=== PATIENT | male | born 1950 | race Caucasian/White ===

== ENCOUNTER 2022-12-28 02:09 | Inpatient (IN) | payer MEDICARE ==
[~2022-12-28] VITALS: Ht 180.3 cm; Wt 82.1 kg
[2022-12-28] MEDS ORDERED: MAGNESIUM HYDROXIDE 30 ML LIQUID UDC PO PRN (02:45)
[2022-12-28] MEDS ORDERED: MAG HYDROX/AL HYDROX/SIMETH 30 ML LIQUID UDC PO PRN (02:45)
[2022-12-28] MEDS: LORAZEPAM 1 MG TABLET PO PRN ×3 (02:54→20:59)
--- NOTE | 2022-12-28 03:34 | NUR ---
GPS ADMISSION NOTE : Received patient as a direct admit from [facility] on a 5150 for DTS and GD. Per hold, the patient mentioned to a friend ,that he wants "To end it all by walking into the ocean". There has been an increase in confusion over the last month and the patient is out of touch with reality and is unable to care for himself. This patient is reported to be living in his car. Upon face to face evaluation, the patient is confused and is unable to engage in any meaningful conversation with this senior writer. He does however ,deny active SI and does not remember making those statements that are on the hold. The patient is hearing voices and his speech is word salad and is nonsensical. He is unable to answer questions about his medical history and has no record of taking medications from home. VS are stable, the patient is ambulatory and continent. A Patients rights hand book and Patient Advisement were provided and discussed. Orientation to the environment given but reinforcement needed. Safety Stratiges are in place . Continuing to monitor for combativeness, paranoia, AMS and to redirect and reorientate the patient as needed.
[2022-12-28 04:29] VITALS: BP 141/92
--- NOTE | 2022-12-28 07:10 | NUR ---
GPS: Patient is up walking zander the manrique, speech clear but slow, patient unaware of current situation, needs verbal orientation. Denies pain or discomforts, fall and safety precautions implement.Will continue to monitor.
[2022-12-28 07:30] VITALS: BP 93/55
[2022-12-28] MEDS: NICOTINE 14 MG/24HR PATCH TD SCH (08:31)
[2022-12-28 10:28] VITALS: BP 115/90
--- NOTE | 2022-12-28 11:10 | NUR ---
GPS: Patient is pacing around,pushing exit doors, walking in and out of his room, "I need to get out of here, I need to smoke , my shoes, this needs to happen now". Frequent verbal redirecting patient to realty ,re-orientating to unit, educating patient that this is a smoke free facility, Nicotine Patch applied this morning, Patient showered, shaved. Patient smoke with his friend Mr. Gudino ( this is the person that brought him to the Hospital) offered Po Prn for anxiety, after multiple times offering, patient took medication. Emotional support provided, Fall and safety precaution implement. Will continue to monitor.
[2022-12-28] MEDS: risperiDONE 0.25 MG TABLET PO SCH (16:02)
[2022-12-28 16:31] VITALS: BP 91/59
[2022-12-28 19:46] VITALS: BP 100/58
[2022-12-28] MEDS: MIRTAZAPINE 15 MG TABLET PO SCH (20:58)
[2022-12-28] MEDS: ZOLPIDEM 5 MG TABLET PO PRN (22:15)
--- NOTE | 2022-12-29 00:52 | NUR ---
At the start of the shift 1900, until 2300, this patient was pacing, agitated , confused, disoriented and unable to reorient or redirect. The patient was intrusive with staff and other patients. After using the bathroom in his room, he impulsively pulled the door off of the bathroom and broke the clock hanging up on the wall for no reason. Not aware of what he did , zero insight. PRN medications were given with a snack. The patient went to bed and got up a few times completely disoriented. Eventually, the patient fell asleep. Safety Stratiges are in place. This patient requires constant monitoring and could use the Aide of a sitter. Staff is as vigilant as possible with care of this patient.
[2022-12-29] MEDS ORDERED: OLANZAPINE 10 MG VIAL IM ONE (04:15)
--- NOTE | 2022-12-29 05:27 | NUR ---
The patient got up at 0345 am, and was very confused, verbally abusive and combative with all 3 of the staff members on the unit. This patient would not respond to any redirection, reorientation, or the multiple attempts at using a calm approach or distraction. Toileting and food offered but every restrictive means possible to deescalate the patient was unsuccessful. He continued to strike out violently, punching, kicking , slapping and pulling the staffs hair. After getting the patient in the chair, Dr Butler was notified and an order was received for a one time IM injection. Security was notified and the injection was given with less than a minute of hands on by the staff. The patient tolerated the medication well, but unfortunately the patients behavior has improved only minimally. VS have been stable. Fluid was offered, but the patient tried to throw it at the nurse. It is an ongoing struggle to maintain safety for everyone involved on this unit d/t the patients poor impulse control, impulsivity and the sheer strength of this man. Safety Stratiges are in place and the notion of getting a sitter to enhance safety at this time will be endorsed to the oncoming shift and the administration for consideration.
[2022-12-29 07:43] VITALS: BP 111/75
[2022-12-29] MEDS: risperiDONE 0.25 MG TABLET PO SCH ×2 (08:09→16:10)
[2022-12-29] MEDS: NICOTINE 14 MG/24HR PATCH TD SCH (08:09)
[2022-12-29] MEDS: LORAZEPAM 1 MG TABLET PO PRN ×3 (08:14→21:05)
--- NOTE | 2022-12-29 08:31 | NUR ---
Gps/Fur Dry Cleaner- During the initial rounds , pt, anixous fidgety, , confused , resistive to am care, refused to eat breakfast, offered to assist pt. Kept up on his gerii-chair for close supervision fo his safety .Fluids offered, encouraged
--- NOTE | 2022-12-29 12:27 | NUR ---
Gps/Tack Maker- Tried to feed patient, fidgety, restless, grabs staff, gets anxious, difficulty redirecting , no meaningful conversation . reaching out for something , mumbles . Call Center Nurse tried, offering liquids, grabs cups , spilling liquids , trying to bite plastic spoons
[2022-12-29] MEDS: ACETAMINOPHEN 325 MG TABLET PO PRN ×2 (12:52→21:05)
[2022-12-29 16:16] VITALS: BP 116/87
--- NOTE | 2022-12-29 17:32 | NUR ---
Gps/Structural Engineering Technician- Patient removed and threw upper denture on the floor, cleansed , rinsed , placed oin a denture cup in his locker (beloning) . Tired to feed patient,ensure offered and encouraged , patient tries to grabs, resistive, trying to hit, jerky movements. Will reoffer food when calmer .
[2022-12-29 19:47] VITALS: BP 119/83
[2022-12-29] MEDS: MIRTAZAPINE 15 MG TABLET PO SCH (21:05)
--- NOTE | 2022-12-30 05:32 | NUR ---
[facility]; responds to name. Disoriented, confused, and hard to re-direct. Pt is x2 full assist with ambulation/transfers, especially when trying to provide daily care. Unsteady gait and balance. Can become easily irritated when trying to provide care such as cleaning his perineal area and changing his diaper and clothes. Can become combative striking out with fists, elbows, legs, and feet. Pt does take his medications crushed in applesauce. Safety measures in place.
--- NOTE | 2022-12-30 07:30 | NUR ---
Pt is highly combative and it took entire staff this shift to control and provide care for this patient. Pt strikes out with all extremities. AOx1, confused and disoriented. Very hard to re-direct. Safety measures in place.
[2022-12-30] MEDS ORDERED: OLANZAPINE 10 MG VIAL IM STA (07:39)
--- NOTE | 2022-12-30 07:47 | NUR ---
GPS: Nursing Notes: Severe Agitation: Patient is awake and responding to internal stimuli by shouting, threatening staff, kicking staff, punching staff, poor anger management, throwing things to staff, overly disruptive by banging on the wall and table, restless behavior, setting limits, but unable to be redirected, Dr. Carrie leo, continue to monitor for safety, continue with treatment plan.
--- NOTE | 2022-12-30 07:53 | NUR ---
GPS: Nursing Notes: Chemical Restraint: Patient continue to be restless, unable to be redirected, punching staff, kicking staff, poor anger management, overly disruptive by shouting profanities toward staff, banging on the table, punching the wall, throwing juice cup toward staff, Dr. Butler called and ordered: Zyprexa 5mg IM STAT for severe agitated behavior, R=18, continue to monitor for safety, continue with treatment plan.
--- NOTE | 2022-12-30 08:23 | NUR ---
GPS: Nursing Notes: Reassessment of Chemical Restraint: Patient is awake and responding to his name, confused, disoriented, disorganized, impaired judgment, poor insight, IM medication was effective, patient became calm, R=18, continue to monitor for safety, continue with treatment plan.
[2022-12-30] MEDS: risperiDONE 0.25 MG TABLET PO SCH (08:27)
[2022-12-30] MEDS: LORAZEPAM 1 MG TABLET PO PRN ×2 (08:27→21:20)
[2022-12-30] MEDS: NICOTINE 14 MG/24HR PATCH TD SCH (08:27)
[2022-12-30] MEDS: ACETAMINOPHEN 325 MG TABLET PO PRN ×2 (08:53→16:46)
[2022-12-30] MEDS ORDERED: risperiDONE 0.25 MG TABLET PO SCH (09:00)
[2022-12-30] MEDS ORDERED: risperiDONE 0.25 MG TABLET PO ONE (09:15)
--- NOTE | 2022-12-30 11:55 | NUR ---
GPS: Nursing Notes: 5250 [facility] Request: Staff gave copy of 5250 to patient. Explained 5250 and informed patient that a certification review hearing will be held within four days and patient's right advocate will call him to provide assistance with the hearing and to answer his questions. The court has been notified of this certification via [facility] portal on this day.
--- NOTE | 2022-12-30 12:11 | NUR ---
RAUL Initial Discharge Note: Pt currently resides at [address] [place] [address] ([phone]). Per pt's friend, Obey ([phone]), pt does not have any confirmed family contact. Obey is the main point of contact who stated he is available to answer any questions. Obey is aware that pt may need a fpc facility. RAUL will continue to work with pt, Obey and to ensure a safe and proper discharge plan.
[2022-12-30] MEDS: risperiDONE 0.5 MG TABLET PO SCH ×2 (12:20→16:46)
--- NOTE | 2022-12-30 12:44 | NUR ---
Firearms Report: Music Promoter completed and submitted a DOJ firearms report for 5150 a danger to himself and grave disability certifications. A copy of report has been placed in patient chart.
[2022-12-30] MEDS ORDERED: HALOPERIDOL LACTATE 5 MG/1 ML VIAL IM STA (14:30)
[2022-12-30] MEDS ORDERED: diphenhydrAMINE 50 MG/1 ML VIAL IM STA (14:30)
--- NOTE | 2022-12-30 14:41 | NUR ---
GPS: Nursing Notes: Chemical Restraint: Patient is overly disruptive by banging on the table, restless behavior, poor anger management, trying to hit staff when coming closer to assist him, impaired judgment, episode of kicking to staff, setting limits, but unable to be redirected, refusing his afternoon medication PO, Dr. Butler called and ordered Haldol 2mg IM and Benadryl 25mg IM STAT X1 for severe agitation, R=18, IM medication given at this time, continue to monitor for safety, continue with treatment plan.
--- NOTE | 2022-12-30 15:11 | NUR ---
GPS: Nursing Notes: Reassessment of Chemical Restraint: patient continue with angry affect, impaired judgment, poor insight, disorganized, resistant with nursing care, IM medications were helpful, patient is less restless and combative with staff, continue to be redirected and reoriented during shift, R=18, continue to monitor for safety, continue with treatment plan.
[2022-12-30 19:02] LABS: THYROID STIMULATING HORMONE 0.438 mIU/mL (0.358-3.740)
[2022-12-30] MEDS: MIRTAZAPINE 15 MG TABLET PO SCH (21:10)
[2022-12-30] MEDS: ZOLPIDEM 5 MG TABLET PO PRN (21:21)
--- NOTE | 2022-12-30 23:47 | NUR ---
GPS: Pt.is confused,disoriented and disorganized. Poor insight and impaired judgment. Combative,aggressive and tries to kick and hit staff during incontinence care. Re-directed frequently. Fall precautions observed. Bed alarm on for safety.
[2022-12-31] MEDS: LORAZEPAM 1 MG TABLET PO PRN ×2 (09:05→19:29)
[2022-12-31] MEDS: NICOTINE 14 MG/24HR PATCH TD SCH (09:33)
[2022-12-31] MEDS: risperiDONE 0.5 MG TABLET PO SCH ×3 (09:33→17:09)
--- NOTE | 2022-12-31 12:52 | NUR ---
GPS: Nursing Notes: Destructive Behavior To Others: Patient is awake and responding to his name, impaired judgment, poor anger management, poor impulse control, violent outburst without provocation, resistant with nursing care, episode of swinging at staff when trying to assist him with ADL's, refusing to eat, believes that we are trying to poison him, isolative and withdrawn in his room, refusing to participate in therapeutic groups, unable to formulate a viable plan for self care, poor grooming, unkempt appearance, continue to monitor for safety, continue with treatment plan.
[2022-12-31] MEDS: MIRTAZAPINE 15 MG TABLET PO SCH (20:22)
[2022-12-31] MEDS: ZOLPIDEM 5 MG TABLET PO PRN (21:36)
[2023-01-01] MEDS: LORAZEPAM 1 MG TABLET PO PRN ×2 (05:40→21:03)
--- NOTE | 2023-01-01 06:24 | NUR ---
GPS: Pt.remains confused,disoriented and non-sensical. Anxious,restless,combative,unpredictable and easily irritable when approached. Pt.did not sleep at all last night despite receiving a sleeping pill. Frequently trying to get out of bed for no reason. Constant re-direction was provided. Refused Ativan 1mg PO for increased anxiety/agitation despite numerous attempts by staff. Needs attended. Will continue to monitor.
[2023-01-01 07:51] VITALS: BP 116/84
[2023-01-01] MEDS: risperiDONE 1 MG TABLET PO SCH ×2 (08:56→17:28)
[2023-01-01] MEDS: NICOTINE 14 MG/24HR PATCH TD SCH (08:56)
[2023-01-01] MEDS ORDERED: risperiDONE 0.5 MG TABLET PO SCH (09:00)
[2023-01-01 15:12] VITALS: BP 108/84
--- NOTE | 2023-01-01 18:17 | NUR ---
Pt remains unpredictable and continues to be aggressive and combative with care .Pt has poor insight to present situation.Pt needs maximal assistance with ADLs at least 3 staff members. Pt is compliant with medications. Pt is nonsensical and incongruent. continue to monitor for safety and behavioral escalation. Continue with treatment plan.
[2023-01-01 20:05] VITALS: BP 112/88
[2023-01-01] MEDS: MIRTAZAPINE 15 MG TABLET PO SCH (20:11)
--- NOTE | 2023-01-01 21:06 | NUR ---
GPS: Pt.remains confused,disoriented and disorganized. Less anxious and combative so far tonight. Re-assured and re-directed. Fall precautions observed. Compliant with his meds.so far. Needs attended.
[2023-01-01] MEDS: ZOLPIDEM 5 MG TABLET PO PRN (22:34)
[2023-01-02 07:30] VITALS: BP 116/85
[2023-01-02] MEDS: NICOTINE 14 MG/24HR PATCH TD SCH (09:40)
[2023-01-02] MEDS: risperiDONE 1 MG TABLET PO SCH ×2 (09:40→17:25)
[2023-01-02] MEDS: ENSURE ENLIVE (VAN) 240 ML LIQUID PO SCH (09:40)
[2023-01-02 15:56] VITALS: BP 103/72
--- NOTE | 2023-01-02 18:30 | NUR ---
Pt was more cooperative with care wit a lot of prompting. Pt did not strike out at staff.Pt is still restless banging on the tray table. Pt is compliant with medication . Pt can not perform his ADLs and needs at least a two person assist. Safety measures put in place. continue to monitor for safety and behavioral escalation.
[2023-01-02 20:18] VITALS: BP 121/86
[2023-01-02] MEDS: MIRTAZAPINE 15 MG TABLET PO SCH (21:30)
[2023-01-03] MEDS: ZOLPIDEM 5 MG TABLET PO PRN (02:09)
--- NOTE | 2023-01-03 02:10 | NUR ---
After numerous verbal attempts by staff to calm patient from his restlessness, pt continued to bang on table and attempted to get out of gerichair. Pt could not relax and fall asleep. By 214, Zolpidem Tartrate 5mg po prn was given. Patient was brought to his room shortly after. Safety measures in place. Will continue to monitor.
[2023-01-03 07:38] VITALS: BP 107/66
[2023-01-03] MEDS: risperiDONE 1 MG TABLET PO SCH ×3 (08:32→20:52)
[2023-01-03] MEDS: NICOTINE 14 MG/24HR PATCH TD SCH (08:32)
[2023-01-03] MEDS: ENSURE ENLIVE (VAN) 240 ML LIQUID PO SCH (09:14)
--- NOTE | 2023-01-03 10:49 | NUR ---
Patient had court hearing today, and box shook patcher Janet Patel gave 14 Day hold probable cause for GD only.
[2023-01-03] MEDS: LORAZEPAM 1 MG TABLET PO PRN (14:53)
--- NOTE | 2023-01-03 16:00 | NUR ---
Gps/Technical Training Coordinator-Stayed up on his gerber- chair in the dinning room most of the day, attending his group therapy. Toileted at a regular intervals , voiding adequately, assisted with his meals, with adequate intake. Cooperative during his pm care. no aggressive behavior noted , able to follow simple directions, interacts when engaged.
[2023-01-03 16:03] VITALS: BP 141/72
[2023-01-03 19:59] VITALS: BP 103/72
[2023-01-03] MEDS: MIRTAZAPINE 15 MG TABLET PO SCH (20:52)
--- NOTE | 2023-01-04 05:45 | NUR ---
Pt is still anxious and restless at times. Pt is more cooperative with Nursing care. Pt is compliant with medications. No aggressive behavior noted during this shift. Pt had a snack then was taken to bed , Diaper changed.bed alarm on. Pt slept for 10 hours. continue to monitor for safety, continue with treatment plan.
[2023-01-04 07:29] LABS: HEMATOCRIT 42.4 % (36.7-47.1); MEAN CORPUSCULAR HEMOGLOBIN 32.3 uug (23.8-33.4); MEAN CORPUSCULAR VOLUME 96.1 fL (73.0-96.2); PLATELET COUNT (AUTO) 143 K/uL (152-348)
[2023-01-04] MEDS: LORAZEPAM 1 MG TABLET PO PRN ×2 (07:38→19:51)
[2023-01-04 07:39] VITALS: BP 104/78
[2023-01-04 08:17] LABS: BILIRUBIN,TOTAL 0.9 mg/dL (0.2-1.0); CREATININE 1.1 mg/dL (0.6-1.3); PHOSPHOROUS 3.3 mg/dL (2.5-4.9); POTASSIUM 3.6 mmol/L (3.5-5.1); TOTAL PROTEIN, SERUM 7.4 g/dL (6.4-8.2)
[2023-01-04] MEDS: risperiDONE 1 MG TABLET PO SCH ×3 (08:25→20:16)
[2023-01-04] MEDS: NICOTINE 14 MG/24HR PATCH TD SCH (08:26)
[2023-01-04] MEDS: ENSURE ENLIVE (VAN) 240 ML LIQUID PO SCH (08:27)
--- NOTE | 2023-01-04 09:00 | NUR ---
Pt refused EKG.. RN notified..
--- NOTE | 2023-01-04 12:04 | NUR ---
GPS: Nursing Notes: Thought Disorder: Patient is awake and responding to his name, disoriented, impaired judgment, confused, poor insight, disorganized, wandering around the unit aimlessly, unable to formulate a viable plan for self care, unkempt appearance, resistant with nursing care, in and out of therapeutic groups, continue to monitor for safety, continue with treatment plan.
[2023-01-04] MEDS: ACETAMINOPHEN 325 MG TABLET PO PRN (14:57)
[2023-01-04 16:38] VITALS: BP 96/66
[2023-01-04 20:00] VITALS: BP 106/79
[2023-01-04] MEDS: MIRTAZAPINE 15 MG TABLET PO SCH (20:17)
[2023-01-05] MEDS: LORAZEPAM 1 MG TABLET PO PRN ×2 (07:39→14:22)
[2023-01-05 08:15] VITALS: BP 111/76
[2023-01-05] MEDS: NICOTINE 14 MG/24HR PATCH TD SCH (08:19)
[2023-01-05] MEDS: risperiDONE 1 MG TABLET PO SCH ×3 (08:19→20:35)
[2023-01-05] MEDS: ENSURE ENLIVE (VAN) 240 ML LIQUID PO SCH (08:20)
--- NOTE | 2023-01-05 10:35 | NUR ---
GPS: Nursing Notes: Thought Disorder: Patient is awake and responding to his name, poor insight, impaired judgment, disoriented, disorganized, confused, wandering around the unit aimlessly, urinating on the floor at times, redirected and reoriented during shift, unable to formulate a viable plan for self care, unkempt appearance, present during therapeutic groups, poor impulse control, talking incoherently, no aggressive behavior noted, continue to monitor for safety, continue with treatment plan.
[2023-01-05] MEDS: ACETAMINOPHEN 325 MG TABLET PO PRN (16:07)
[2023-01-05 16:49] VITALS: BP 102/66
[2023-01-05 19:46] VITALS: BP 126/70
[2023-01-05] MEDS: MIRTAZAPINE 15 MG TABLET PO SCH (20:35)
--- NOTE | 2023-01-06 05:31 | NUR ---
No changes from the previous fruit thinner. The patient is confused and unable to engage in any conversation or to let needs known. Unsteady and impulsive. Urinates on self and the staff is unable to direct the patient easily to the bathroom. He is unable to follow directions. Safety Stratiges are in place and ongoing. Close monitoring of this patient for any signs of behavior escalation, combativeness , resistance with care or unpredictable violent outbursts that have been a concern previously, are ongoing. Oral fluids encouraged.
[2023-01-06] MEDS: LORAZEPAM 1 MG TABLET PO PRN ×3 (07:30→20:46)
[2023-01-06 07:50] VITALS: BP 103/75
[2023-01-06] MEDS: NICOTINE 14 MG/24HR PATCH TD SCH (08:11)
[2023-01-06] MEDS: risperiDONE 1 MG TABLET PO SCH ×2 (08:11→16:09)
[2023-01-06] MEDS: ENSURE ENLIVE (VAN) 240 ML LIQUID PO SCH (08:12)
[2023-01-06] MEDS: MEMANTINE HCL 5 MG TABLET PO SCH ×2 (10:10→20:47)
--- NOTE | 2023-01-06 10:27 | NUR ---
RAUL Discharge Update: RAUL spoke with pt's niece, Karyna ([phone]) regarding pt's discharge plan. Karyna stated that for termite helper care the family would like to help the pt return to [place] upon discharge. However, Karyna stated that pt may need a temporary care home facility prior to moving to [place] with family. RAUL, family and MD will continue to work with pt ensure a safe discharge plan.
--- NOTE | 2023-01-06 11:03 | NUR ---
GPS: Nursing Notes: Thought Disorder: Patient is awake and responding to his name, impaired judgment, poor insight, disoriented, disorganized, confused, wandering around the unit aimlessly, AWOL risk, pushing exit doors, setting limits, but unable to follow directions, unable to formulate a viable plan for self care, unkempt appearance, no aggressive behavior noted, continue to be compliant with his medications, continue to monitor for safety, continue with treatment plan.
[2023-01-06] MEDS: ACETAMINOPHEN 325 MG TABLET PO PRN (15:33)
[2023-01-06 19:56] VITALS: BP 108/60
[2023-01-06] MEDS: risperiDONE 2 MG TABLET PO SCH (20:46)
[2023-01-06] MEDS: MIRTAZAPINE 15 MG TABLET PO SCH (20:46)
[2023-01-06] MEDS: ZOLPIDEM 5 MG TABLET PO PRN (20:47)
[2023-01-07 07:30] VITALS: BP 107/81
[2023-01-07] MEDS: risperiDONE 1 MG TABLET PO SCH ×2 (08:20→16:03)
[2023-01-07] MEDS: NICOTINE 14 MG/24HR PATCH TD SCH (08:20)
[2023-01-07] MEDS: MEMANTINE HCL 5 MG TABLET PO SCH ×2 (08:20→20:30)
[2023-01-07] MEDS: ENSURE ENLIVE (VAN) 240 ML LIQUID PO SCH (08:21)
[2023-01-07] MEDS ORDERED: ZOLPIDEM 5 MG TABLET PO PRN (09:00)
--- NOTE | 2023-01-07 10:21 | NUR ---
GPS: Nursing Notes: Thought Disorder: Patient is awake and responding to his name, confused, disoriented, wandering around the unit aimlessly, poor insight, impaired judgment, getting into other patient's room, redirected and reoriented during shift, unable to formulate a viable plan for self care, unkempt appearance, poor grooming, no aggressive behavior noted, continue to monitor for safety, continue with treatment plan.
[2023-01-07] MEDS: LORAZEPAM 1 MG TABLET PO PRN ×2 (14:42→23:03)
[2023-01-07 15:28] VITALS: BP 117/84
--- NOTE | 2023-01-07 16:23 | NUR ---
GPS: Nursing Notes: Per Niece - Regarding Hardesty: Staff received phone call from patient's niece - Karyna. Stating that he was receiving Hardesty without prescription from his girlfriend. Karyna was requesting a Hardesty level. Staff informed Dr. Butler, but no further orders were given. Continue to monitor for safety, continue with treatment plan.
[2023-01-07 19:59] VITALS: BP 107/72
[2023-01-07] MEDS: MIRTAZAPINE 15 MG TABLET PO SCH (20:30)
[2023-01-07] MEDS: risperiDONE 2 MG TABLET PO SCH (20:31)
--- NOTE | 2023-01-08 03:57 | NUR ---
GPS NOTES: Received patient sitting in the gerichair, he is A&0x1, he is ambulatory, pacing around the unit, pleasantly confused. He is redirectable and more compliant when providing care. Med compliant. Snacks and fluid provided. Patient responding more to staff though he is not making meaningful conversation. Ativan given d/t anxiety, effective as patient slept well this shift. No distress noted. All safety strategies in placed.
[2023-01-08 07:54] VITALS: BP 112/67
[2023-01-08] MEDS: MEMANTINE HCL 5 MG TABLET PO SCH ×2 (08:41→20:14)
[2023-01-08] MEDS: NICOTINE 14 MG/24HR PATCH TD SCH (08:41)
[2023-01-08] MEDS: risperiDONE 1 MG TABLET PO SCH ×2 (08:41→17:17)
[2023-01-08] MEDS: ENSURE ENLIVE (VAN) 240 ML LIQUID PO SCH (08:45)
--- NOTE | 2023-01-08 09:29 | NUR ---
SW Discharge Update: RAUL spoke with pt's nieceKaryna ([phone]) regarding pt's discharge update. Pt is cleared to discharge on Friday. per Karyna, pt will require a temporary facility prior to moving back home with family. Karyna agreed for this SW to refer pt to [facility] located at [address] [place] [address] ([phone]) upon discharge. RAUL will send clinicals to amy ndiaye and follow-up with Karyna with updates.
[2023-01-08 16:10] VITALS: BP 109/67
--- NOTE | 2023-01-08 18:15 | NUR ---
Pt is doing better, Pt is able to ambulate and use toile t on his own. Pt can feed his self and is compliant with nursing care and medications.Pt is calm and pleasant . No aggressive behavior noted during shift. Pt participated in group activities ad interacts with staff and other patients.Safety measures put in place. Continue to monitor for safety and continue with treatment plan.
[2023-01-08 19:52] VITALS: BP 107/73
[2023-01-08] MEDS: risperiDONE 2 MG TABLET PO SCH (20:14)
[2023-01-08] MEDS: MIRTAZAPINE 15 MG TABLET PO SCH (20:14)
[2023-01-09 08:00] VITALS: BP 116/81
[2023-01-09] MEDS: risperiDONE 1 MG TABLET PO SCH ×2 (08:27→17:09)
[2023-01-09] MEDS: MEMANTINE HCL 5 MG TABLET PO SCH ×2 (08:27→20:22)
[2023-01-09] MEDS: ENSURE ENLIVE (VAN) 240 ML LIQUID PO SCH (08:28)
[2023-01-09] MEDS: NICOTINE 14 MG/24HR PATCH TD SCH (08:28)
--- NOTE | 2023-01-09 14:22 | NUR ---
Gps/Acetylene Plant Operator- Cooperative pleasant, compliant with his medications had been cooperative with the staff, needing redirections Tends to wander from time to time, discouraged from going to females room. Had been in and out of hid activity room. Pleasantly confused. Medications compliant
[2023-01-09 16:06] VITALS: BP 104/71
--- NOTE | 2023-01-09 17:40 | NUR ---
Gps/Tile Power Shear Operator- Stays standing by the hallway, encouraged to fine a sit in the dinning room , and eat dinner , had been in and out of the activity room ,pleasant affect, cooperative withe staff , pleasantly confused
[2023-01-09] MEDS: MIRTAZAPINE 15 MG TABLET PO SCH (20:22)
[2023-01-09] MEDS: risperiDONE 2 MG TABLET PO SCH (20:22)
[2023-01-09 20:32] VITALS: BP 100/61
[2023-01-10] MEDS: risperiDONE 1 MG TABLET PO SCH (08:40)
[2023-01-10] MEDS: MEMANTINE HCL 5 MG TABLET PO SCH (08:40)
[2023-01-10] MEDS: ENSURE ENLIVE (VAN) 240 ML LIQUID PO SCH (08:41)
[2023-01-10] MEDS: NICOTINE 14 MG/24HR PATCH TD SCH (08:41)
[2023-01-10 08:42] VITALS: BP 104/67
--- NOTE | 2023-01-10 10:23 | NUR ---
RAUL Discharge Note: Pt will be discharged to [facility] located at [address] [place] [address] ([phone]) via Ambulance transportation at 11AM. RAUL spoke with admin coordinator, Emma ([phone]) at the facility who states they are ready to accept the patient today. RAUL spoke with pts niece, Karyna ([phone]) who is aware and agreebale with the discharge plan. Pt is alert and oriented x3, is unable to plan for self-care at this time. However, pt is willing to accept care at SNF. Pt denies any suicidal or homicidal ideation. Pt will follow-up at the facility with Psychiatrist, Dr. Butler [phone] and Va Underwriter, Dr. Yates. Pt presents with calm mood and congruent affect. PHARMACY: [facility] ([phone]) [address] [facility] [id number].
--- NOTE | 2023-01-10 11:41 | NUR ---
Discharged patient to [facility] via Ambulance transportation at 11;45 AM. . SW spoke with pts corky, Karyna who is aware and agreeable with the discharge plan. Pt is alert and oriented x3, is unable to plan for self-care at this time. However, pt is willing to accept care at SNF. Pt denies any suicidal or homicidal ideation. Pt will follow-up at the facility with Psychiatrist, Dr. Butler and Director [facility], Dr. Yates.all personal belonging returned to patient.
== END 2023-01-10 11:45 | DRG 884 ==
LOC: GPS 02:09
PROVIDERS: ADMIT Psychiatry & Neurology Psychiatry
DX: F03.92 Unspecified dementia, unspecified severity, with psychotic disturbance (principal); N17.0 Acute kidney failure with tubular necrosis; F03.93 Unspecified dementia, unspecified severity, with mood disturbance; Z59.02 Unsheltered homelessness; F17.210 Nicotine dependence, cigarettes, uncomplicated; F32.A Depression, unspecified
CPT/HCPCS: 36415; 71045; 82747; 83735; 83921; 84100; 84443; 85014; 85025; A4663; J1200; J1630; J2358